=== PATIENT | female | born 1985 | race Caucasian/White ===

== ENCOUNTER 2016-10-14 19:59 | Emergency (ER) | payer BC ==
[2016-10-14 20:09] VITALS: BP 130/89; PULSE 88; RESP 18; TEMP 97.7
--- NOTE | 2016-10-14 20:25 | ED ---
General Adult HPI - General Chief complaint: ENT Stated complaint: fever/cough Time Seen by Provider: 10/14/16 20:02 Source: patient, RN notes reviewed Mode of arrival: ambulatory Limitations: no limitations - History of Present Illness Initial comments: This is a 31-year-old female who presents to the for 3 days of fever and cough. Patient states she also has had a headache and a sore throat. Patient states the cough is dry. Patient denies any shortness of breath. Patient has a child sick with influenza B. Patient denies any nausea/vomiting/diarrhea. Patient states her ears feel plugged. Patient states she feels like she has had a fever but this has been subjective. Patient has been taking DayQuil for her symptoms. Patient denies any recent chest pain, abdominal pain, back pain, numbness, tingling, hematuria, or visual changes, or any other complaints. - Related Data Home Medications Medication Instructions Recorded Confirmed Hair, Skin, & Nails 1 tab PO DAILY 07/19/16 07/19/16 Multivitamins, Thera [Multivitamin] 1 tab PO DAILY 07/19/16 07/19/16 Previous Rx's Medication Instructions Recorded Acetaminophen with Codeine 1 tab PO Q4H PRN #15 tab 07/19/16 [Tylenol w/codeine #3] Fluticasone Nasal [place] [Flonase 1 - 2 spray EA NOSTRIL DAILY #1 10/14/16 Nasal [place]] bottle Allergies Allergy/AdvReac Type Severity Reaction Status Date / Time No Known Allergies Allergy Verified 07/19/16 12:18 Review of Systems ROS Statement: Those systems with pertinent positive or pertinent negative responses have been documented in the HPI. ROS Other: All systems not noted in ROS Statement are negative. Past Medical History Past Medical History: No Reported History History of Any Multi-Drug Resistant Organisms: None Reported Past Surgical History: No Surgical Hx Reported Past Psychological History: No Psychological Hx Reported Smoking Status: Never smoker Past Alcohol Use History: Occasional Past Drug Use History: None Reported General Exam - General Exam Comments Initial Comments: General: The patient is awake and alert, in no distress, and does not appear acutely ill. Eye: Pupils are equal, round and reactive to light, extra-ocular movements are intact. No nystagmus. There is normal conjunctiva bilaterally. No signs of icterus. Ears: TMs pink and pearly with intact cone of light bilaterally, fluid present behind the ears bilaterally. Normal external ear canals Nose: Nasal turbinates with mild erythema. Mild discomfort of frontal and maxillary sinuses. Mouth and throat: There are moist mucous membranes and no oral lesions. Neck: The neck is supple, there is no tenderness or JVD. Cardiovascular: There is a regular rate and rhythm. No murmur, rub or gallop is appreciated. Respiratory: Lungs are clear to auscultation, respirations are non-labored, breath sounds are equal. No wheezes, stridor, rales, or rhonchi. Musculoskeletal: Normal ROM, no tenderness. Strength 5/5. Sensation intact. Radial pulses equal bilaterally 2+. Neurological: A&O x 3. CN II-XII intact, There are no obvious motor or sensory deficits. Coordination appears grossly intact. Speech is normal. Skin: Skin is warm and dry and no rashes or lesions are noted. Psychiatric: Cooperative, appropriate mood & affect, normal judgment. Limitations: no limitations Course Vital Signs 10/14/16 20:07 Temperature 97.7 F Pulse Rate 88 Respiratory 18 Rate Blood Pressure 130/89 O2 Sat by Pulse 99 Oximetry Medical Decision Making - Medical Decision Making This is a 31-year-old female presents with flu-like symptoms 3 days. On physical exam patient is afebrile in the EC. Lungs are clear to auscultation bilaterally. The patient was in the EC today with her daughter who was diagnosed with influenza B. I discussed that the mother most likely has influenza as well. Discussed that patient is out of the window for influenza treatment with Tamiflu. I discussed symptomatic treatment. Patient will be given a prescription for Flonase. I offered the patient chest x-ray in the EC today but patient refused. I discussed continuation of Tylenol and Motrin for fever. I discussed return parameters. Discussed that patient should follow up with PCP in one to 2 days or return to the EC for any worsening symptoms or for any further concerns. Patient was receptive to this plan and patient will be discharged home. Disposition Clinical Impression: Influenza Disposition: HOME SELF-CARE Condition: Good Instructions: Influenza (ED), Influenza Vaccine (ED) Additional Instructions: Please continue [id number] decongestants and Tylenol/Motrin. Please be sure to drink plenty of fluids. Please use Flonase as prescribed. Please follow-up with primary care provider in the next 1-2 days or return to the EC for any worsening symptoms or for any further concerns. Prescriptions: Fluticasone Nasal [place] [Flonase Nasal [place]] 1 - 2 spray EA NOSTRIL DAILY #1 bottle Referrals: Arron Chen MD [Primary Care Provider] - 1-2 days Time of Disposition: 20:29
== END 2016-10-14 20:35 | disposition home or self-care (01) ==
LOC: EC 19:59
DX: J10.1 Influenza due to other identified influenza virus with other respiratory manifestations (principal)
CPT/HCPCS: 99283

== ENCOUNTER 2018-12-16 15:13 | Inpatient (IN) | payer BC ==
[2018-12-16 16:13] LABS: Appearance,Urine Clear (Clear); Bilirubin,Urine Negative (Negative); Blood,Urine Moderate (Negative); Color,Urine Yellow; Glucose,Urine (UA) Negative (Negative); Ketones,Urine Negative (Negative); Leukocyte Esterase,Urine Trace (Negative); Mucus,Urine Rare /hpf; Nitrite,Urine Negative (Negative); Protein,Urine Trace (Negative); Specific Gravity,Urine 1.018 (1.001-1.035); Squamous Epithelial Cell,Urine 3 /hpf (0-4); Urobilinogen,Urine <2.0 mg/dL (<2.0); WBC,Urine 3 /hpf (0-5)
[2018-12-16 16:15] LABS: Basophils % (A) 0 %; Eosinophils # (A) 0.1 k/uL (0-0.7); Eosinophils % (A) 1 %; HGB 11.5 gm/dL (11.4-16.0); Lymphocytes # (A) 1.4 k/uL (1.0-4.8); Lymphocytes % (A) 19 %; MCHC 32.8 g/dL (31.0-37.0); MCV 88.5 fL (80.0-100.0); Mean Platelet Volume 7.8; Monocytes # (A) 0.6 k/uL (0-1.0); Monocytes % (A) 7 %; Neutrophils # (A) 5.4 k/uL (1.3-7.7); Neutrophils % (A) 72 %; Platelet Count 175 k/uL (150-450); RBC 3.95 m/uL (3.80-5.40); RDW 13.7 % (11.5-15.5); WBC 7.5 k/uL (3.8-10.6)
[2018-12-16 16:26] LABS: ALT 12 U/L (9-52); AST 20 U/L (14-36); Blood Urea Nitrogen 9 mg/dL (7-17); LDH 328 U/L (313-618); Uric Acid 5.6 mg/dL (3.7-7.4)
[2018-12-16 17:14] VITALS: BMI 30.7
[2018-12-16] MEDS ORDERED: CARBOPROST TROMETHAMINE 250 MCG/ML 1 ML AMP IM PRN (18:04)
[2018-12-16] MEDS ORDERED: OXYTOCIN 10 UNIT/ML 1 ML VIAL IM PRN (18:04)
[2018-12-16] MEDS ORDERED: TERBUTALINE 1 MG/ML VIAL SQ PRN (18:04)
[2018-12-16] MEDS ORDERED: METHYLERGONOVINE 0.2 MG/ML 1 ML AMP IM PRN (18:04)
[2018-12-16] MEDS ORDERED: LIDOCAINE 0.5% (PF) 5 MG/ML (50 ML SDV) SQ PRN (18:04)
[2018-12-16] MEDS ORDERED: OXYTOCIN 30 UNITS/500 ML NS 30 UNIT in SALINE 1 500ML.BAG IV SCH (18:15)
--- NOTE | 2018-12-16 20:27 | P.HPOB ---
History of Present Illness H&P Date: 12/16/18 Chief Complaint: Contractions This is a 33-year-old female 3 para 2 with an estimated date of confinement of 12/14/2018, estimated gestational age of 40-2/7 weeks, who presents to labor and delivery with complaints of contractions. She states they began earlier this morning and have been more intense and fairly regular throughout the day. Upon arrival to triage, she was noted to have some elevated blood pressures. She denies any other history of blurry vision, headaches, or other symptoms. Preeclampsia labs were drawn and all labs were normal. She is admitted for observation due to the gestational hypertension and will be induced in the morning as scheduled unless changes In through the night. labs: GC/chlamydia-negative Hepatitis B surface antigen-negative RPR-nonreactive Rubella-immune Blood type-O+ Antibody screen-negative MANDA globin-13.1 Random glucose-75 Obstetrical ultrasound-normal anatomy. She did have a partial previa at 19 week s that did resolve. 1 hour Glucola-100 Group B streptococcus-negative, but history of positive in the past Obstetrical history: . History of 2 vaginal deliveries at term. Gynecologic history: No history of sexual transmitted diseases Social history: She is . She works part-time as a hairdresser. Review of Systems Constitutional: Denies chills, Denies fever Eyes: denies blurred vision, denies pain Ears, nose, mouth and throat: Denies headache, Denies sore throat Cardiovascular: Denies chest pain, Denies shortness of breath Respiratory: Denies cough Gastrointestinal: Reports abdominal pain (Contractions) Genitourinary: Reports pelvic pain, Reports Musculoskeletal: Reports loss of height Integumentary: Denies pruritus, Denies rash Neurological: Denies numbness, Denies weakness Psychiatric: Reports anxiety, Reports depression Past Medical History Past Medical History: No Reported History History of Any Multi-Drug Resistant Organisms: None Reported Past Surgical History: Breast Surgery Additional Past Surgical History / Comment(s): 2009 Past Anesthesia/Blood Transfusion Reactions: No Reported Reaction Past Psychological History: No Psychological Hx Reported Smoking Status: Never smoker Past Alcohol Use History: Occasional Past Drug Use History: None Reported - Past Family History Mother Family Medical History: Hypertension Father Family Medical History: Diabetes Mellitus Medications and Allergies Home Medications Medication Instructions Recorded Confirmed Type Acetaminophen with Codeine 1 tab PO Q4H PRN #15 tab 07/19/16 Rx [Tylenol w/codeine #3] Multivitamins, Thera [Multivitamin] 1 tab PO DAILY 07/19/16 07/19/16 History Calcium Carbonate [Calcium] 600 mg 12/16/18 History Allergies Allergy/AdvReac Type Severity Reaction Status Date / Time No Known Allergies Allergy Verified 07/19/16 12:18 Exam Osteopathic Statement: *. No significant issues noted on an osteopathic structural exam other than those noted in the History and Physical/Consult. Vital Signs Temp Pulse Resp BP Pulse Ox 12/16/18 17:58 97.5 F L 71 15 150/90 100 12/16/18 17:08 97.5 F L 71 15 150/90 100 Intake and Output 12/16/18 12/16/18 12/16/18 06:59 14:59 22:59 Other: Weight 99.79 kg HEENT: Within normal limits Heart: Regular rate and rhythm Lungs: Clear to auscultation bilaterally Abdomen: Cervix: 4 cm/60%/-2 station heart tones: Category 1, reactive Contractions: Irregular Extremities: Negative Homans Results Result Diagrams: 12/16/18 15:44 12/16/18 15:44 Abnormal Lab Results - Last 24 Hours (Table) 12/16/18 12/16/18 Range/Units 15:52 15:52 Urine Protein Trace H (Negative) Urine Blood Moderate H (Negative) Ur Leukocyte Esterase Trace H (Negative) Urine Mucus Rare H (None) /hpf U Random Total Protein 15 H (<12) mg/dL Assessment and Plan (1) 40 weeks gestation of Current Visit: Yes Status: Acute Code(s): Z3A.40 - 40 WEEKS GESTATION OF SNOMED Code(s): 03102114 (2) Gestational hypertension Current Visit: Yes Status: Acute Code(s): O13.9 - GESTATIONAL HTN W/O SIGNIFICANT PROTEINURIA, UNSP TRIMESTER SNOMED Code(s): 536840563 Plan: Admission for observation tonight. As long as no severe blood pressure elevations, we will start oxytocin induction of labor in the morning. She will also be started on IV antibiotics for group B streptococcus prophylaxis. Expectant management.
[2018-12-17] MEDS ORDERED: IBUPROFEN 600 MG TAB PO ONE (04:40)
[2018-12-17] MEDS ORDERED: BENZOCAINE/MENTHOL SPRAY 1 GM/SPRAY AEROSOL TOPICAL PRN (05:22)
[2018-12-17] MEDS ORDERED: diphenhydrAMINE 50 MG CAP PO PRN (05:22)
[2018-12-17] MEDS ORDERED: ZOLPIDEM 5 MG TAB PO PRN (05:22)
[2018-12-17] MEDS ORDERED: diphenhydrAMINE 25 MG CAP PO PRN (05:22)
[2018-12-17] MEDS ORDERED: LANOLIN CREAM 5 GM TUBE TOPICAL PRN (05:22)
[2018-12-17] MEDS ORDERED: SIMETHICONE 80 MG CHEWABLE PO PRN (05:22)
[2018-12-17] MEDS ORDERED: diphenhydrAMINE 50 MG/ML 1 ML VIAL IVP PRN ×2 (05:22)
[2018-12-17] MEDS ORDERED: ACETAMINOPHEN TAB 325 MG TAB PO PRN (05:22)
[2018-12-17] MEDS ORDERED: HYDROCORTISONE 2.5% RECTAL CREAM 30 GM TUBE RECTAL PRN (05:22)
[2018-12-17] MEDS ORDERED: WITCH HAZEL 1 EACH MED..PAD TOPICAL PRN (05:22)
[2018-12-17] MEDS ORDERED: OXYTOCIN 20 UNITS/1000 ML NS 1,000 ML IV SCH (05:30)
[2018-12-17 07:49] LABS: Basophils % (A) 0 %; Eosinophils # (A) 0.1 k/uL (0-0.7); Eosinophils % (A) 2 %; HCT 38.1 % (34.0-46.0); HGB 12.4 gm/dL (11.4-16.0); Lymphocytes # (A) 1.8 k/uL (1.0-4.8); Lymphocytes % (A) 22 %; MCH 28.6 pg (25.0-35.0); MCHC 32.5 g/dL (31.0-37.0); MCV 87.9 fL (80.0-100.0); Mean Platelet Volume 8.3; Monocytes # (A) 0.5 k/uL (0-1.0); Monocytes % (A) 6 %; Neutrophils # (A) 5.6 k/uL (1.3-7.7); Neutrophils % (A) 69 %; Platelet Count 188 k/uL (150-450); RBC 4.33 m/uL (3.80-5.40); RDW 13.6 % (11.5-15.5); WBC 8.2 k/uL (3.8-10.6)
--- NOTE | 2018-12-17 08:15 | P.PNOBGVD ---
Subjective - Subjective Principal diagnosis: Status post vaginal delivery day #1 Interval history: Patient is doing okay. Lochia is decreasing. She is breast-feeding. Vital signs are stable. Blood pressures have come down slightly. She is frustrated by the construction right above her head in her room. Will try to move to another room. Patient reports: Reports appetite normal, Reports voiding normally, Reports pain well controlled, Reports ambulating normally [place]: doing well, nursing well Objective - Latest Vital Signs Latest vital signs: Vital Signs Temp Pulse Resp BP Pulse Ox 12/17/18 06:15 97.9 F 74 14 137/72 98 12/17/18 05:45 68 14 137/85 12/17/18 05:15 77 14 145/86 12/17/18 05:00 75 14 144/83 12/17/18 04:45 97.4 F L 68 14 139/89 12/17/18 04:30 98.3 F 74 14 152/75 12/17/18 04:15 65 14 148/70 12/16/18 17:58 97.5 F L 71 15 150/90 100 12/16/18 17:08 97.5 F L 71 15 150/90 100 Intake and Output 12/16/18 12/17/18 12/17/18 22:59 06:59 14:59 Other: # Voids 1 0 Weight 99.79 kg - Exam Extremities: Present: normal. Absent: tenderness Abdomen: Present: normal appearance, soft. Absent: distention, tenderness Uterus: Present: normal, firm. Absent: tenderness - Labs Labs: Abnormal Lab Results - Last 24 Hours (Table) 12/16/18 12/16/18 Range/Units 15:52 15:52 Urine Protein Trace H (Negative) Urine Blood Moderate H (Negative) Ur Leukocyte Esterase Trace H (Negative) Urine Mucus Rare H (None) /hpf U Random Total Protein 15 H (<12) mg/dL Assessment and Plan Assessment: Status post vaginal delivery day #1 (1) 40 weeks gestation of Current Visit: Yes Status: Acute Code(s): Z3A.40 - 40 WEEKS GESTATION OF SNOMED Code(s): 98165951 (2) Gestational hypertension Current Visit: Yes Status: Acute Code(s): O13.9 - GESTATIONAL HTN W/O SIGNIFICANT PROTEINURIA, UNSP TRIMESTER SNOMED Code(s): 859290439 Plan: Continue with care. Anticipate discharge home tomorrow.
--- NOTE | 2018-12-17 09:28 | DN ---
DELIVERY SUMMARY The patient progressed to complete and pushing with spontaneous vaginal delivery of a viable male over intact perineum. Following delivery of the head, a nuchal cord x1 was noted, however, was too tight to reduce. Therefore, baby was delivered through the nuchal cord without difficulty and once this was accomplished, anterior and posterior shoulders were easily delivered followed by the remainder of the baby and mouth and nares were then bulb suctioned and baby was placed on mother's abdomen where the umbilical cord was clamped, cut in the usual fashion. Nursery personnel was present to assume care. The umbilical cord was allowed to pulsate for approximately 45 seconds prior to clamping and cutting. Once accomplished, placenta was delivered intact and Pitocin was added to the IV. scores were 8 and 9 at 1 and 5 minutes respectively and the weight was 7 pounds 14 ounces. Both mother and baby were stable following delivery. MMODL / JORGEN: [id number] /
[2018-12-17] MEDS: IBUPROFEN 600 MG TAB PO PRN ×2 (12:15→19:52)
[2018-12-17] MEDS: SENNOSIDES-DOCUSATE SODIUM 1 EACH TAB PO SCH (12:15)
[2018-12-18] MEDS: SENNOSIDES-DOCUSATE SODIUM 1 EACH TAB PO SCH ×2 (02:23→09:00)
[2018-12-18] MEDS: LACTATED RINGERS 1,000 ML IV SCH ×3 (05:37→05:39)
[2018-12-18 07:23] LABS: Basophils % (A) 0 %; Eosinophils # (A) 0.1 k/uL (0-0.7); Eosinophils % (A) 1 %; HCT 31.3 % (34.0-46.0); HGB 10.2 gm/dL (11.4-16.0); Lymphocytes # (A) 1.6 k/uL (1.0-4.8); Lymphocytes % (A) 15 %; MCH 28.5 pg (25.0-35.0); MCHC 32.6 g/dL (31.0-37.0); MCV 87.5 fL (80.0-100.0); Monocytes # (A) 0.6 k/uL (0-1.0); Monocytes % (A) 6 %; Neutrophils # (A) 8.5 k/uL (1.3-7.7); Neutrophils % (A) 78 %; Platelet Count 170 k/uL (150-450); RBC 3.58 m/uL (3.80-5.40); RDW 13.6 % (11.5-15.5)
--- NOTE | 2018-12-18 08:08 | P.DS ---
Providers Date of admission: 12/16/18 16:38 Expected date of discharge: 12/18/18 Attending physician: Kimberly Stringer Primary care physician: Stated None - Discharge Diagnosis(es) (1) 40 weeks gestation of Current Visit: Yes Status: Acute (2) Gestational hypertension Current Visit: Yes Status: Acute Hospital Course: This is a 33-year-old female 3 para 2 at 40-2/7 weeks who presented to labor and delivery with complaints of contractions. She was found not to be in labor however her blood pressures were elevated and therefore she was admitted for observation overnight with planned induction for the a.m. She did however go into labor spontaneously early in the morning and delivered vaginally a viable male on 12/17/2018 with scores of 8 at 1 minute and 9 at 5 minutes and weight of 7 lbs. 14 oz. Her course has been uncomplicated. Her blood pressures have normalized. Lochia is decreasing. Pain is well-controlled with ibuprofen. She is breast-feeding. Vital signs are stable. Abdomen is soft with fundus firm and nontender. Extremities show negative Homans. Impression is status post vaginal delivery day #1. Plan is to discharge home today. Routine instructions are given. She is advised to follow up in the office in 6 weeks for a check. She will be given a prescription for ibuprofen and a breast pump. She is advised to call the office if she has any further questions or concerns prior to her appointment time. Procedures: Spontaneous vaginal delivery of a viable male infant on 12/17/2018 Patient Condition at Discharge: Stable Plan - Discharge Summary Discharge Rx Participant: No New Discharge Prescriptions: New Ibuprofen [Motrin] 600 mg PO Q6HR PRN #60 tab PRN Reason: Mild Pain Or Fever >= 100.5 Continue Multivitamins, Thera [Multivitamin (formulary)] 1 tab PO DAILY Discontinued Acetaminophen with Codeine [Tylenol w/codeine #3] 1 tab PO Q4H PRN #15 tab PRN Reason: Pain No Action Calcium Carbonate [Calcium] 600 mg Discharge Medication List Multivitamins, Thera [Multivitamin (formulary)] 1 tab PO DAILY 07/19/16 [History] Calcium Carbonate [Calcium] 600 mg 12/16/18 [History] Ibuprofen [Motrin] 600 mg PO Q6HR PRN #60 tab 12/18/18 [Rx] Follow up Appointment(s)/Referral(s): Kimberly Stringer DO [Doctor of Osteopathic Medicine] - 6 Weeks Activity/Diet/Wound Care/Special Instructions: Instructions 1. Do not begin any exercise program for 3 weeks. 2. Do not resume sexual relations for 3 weeks or longer if uncomfortable. 3. You may take tub baths or showers at any time. 4. You may use tampons if desired after 3 weeks. 5. Keep the area of episiotomy (stitches) clean and dry. 6. If you are not nursing, wear a good fitting, supportive bra during the day and limit fluid intake for at least 1 week to prevent breast engorgement. 7. Call the office, [phone], within the next week to make appointment for your 6 week checkup if it has not already been made. 8. Report any of the following occurrences to the doctor promptly: a. Heavy, excessive bleeding b. Chills, fever c. Burning or frequency of urination d. Pain or redness and breasts if nursing e. Increasing pain or swelling in episiotomy (stitches). In addition to the above instructions, the following additional should be followed: 1. No heavy lifting or straining (exercising) until after 6 week checkup. 2. Keep abdominal incision clean and dry: You may wear a dressing if more comfortable. 3. Make office appointment for 10 days after going home or as instructed by her doctor. Discharge Disposition: HOME SELF-CARE
[2018-12-18] MEDS: IBUPROFEN 600 MG TAB PO PRN (08:59)
[2018-12-18 09:19] VITALS: BP 145/92; PULSE 72; RESP 18; TEMP 97.9
== END 2018-12-18 11:52 | disposition home or self-care (01) | DRG 807 ==
LOC: FBPOP 15:13 → 4FBP 16:38
PROVIDERS: ADMIT Obstetrics & Gynecology; ATTEND Obstetrics & Gynecology
PROC: 10E0XZZ Delivery of Products of Conception, External Approach (ICD-10-PCS; principal; 2018-12-17)
DX: O13.4 Gestational [pregnancy-induced] hypertension without significant proteinuria, complicating childbirth (principal); Z37.0 Single live birth; O69.81X0 Labor and delivery complicated by cord around neck, without compression, not applicable or unspecified; Z3A.40 40 weeks gestation of pregnancy; Z82.49 Family history of ischemic heart disease and other diseases of the circulatory system; Z83.3 Family history of diabetes mellitus
CPT/HCPCS: 59025; 81001; 82565; 82570; 83615; 84156; 84450; 84460; 84520; 84550; 85025; 86850; 86900; 86901; 99215

== ENCOUNTER 2020-08-17 21:22 | Emergency (ER) | payer BC ==
[2020-08-17 21:28] VITALS: TEMP 98.6
[2020-08-17] MEDS ORDERED: SODIUM CHLORIDE 0.9% 1,000 ML IV STA (21:39)
[2020-08-17 21:57] LABS: Basophils % (A) 1 %; Eosinophils # (A) 0.1 k/uL (0-0.7); Eosinophils % (A) 2 %; HCT 37.4 % (34.0-46.0); HGB 12.9 gm/dL (11.4-16.0); Lymphocytes # (A) 2.5 k/uL (1.0-4.8); Lymphocytes % (A) 47 %; MCH 29.7 pg (25.0-35.0); MCHC 34.5 g/dL (31.0-37.0); MCV 86.2 fL (80.0-100.0); Mean Platelet Volume 7.5; Monocytes # (A) 0.4 k/uL (0-1.0); Monocytes % (A) 7 %; Neutrophils # (A) 2.2 k/uL (1.3-7.7); Neutrophils % (A) 42 %; Platelet Count 177 k/uL (150-450); RBC 4.34 m/uL (3.80-5.40); RDW 12.4 % (11.5-15.5); WBC 5.2 k/uL (3.8-10.6)
[2020-08-17 22:13] LABS: ALT 9 U/L (4-34); AST 19 U/L (14-36); African American GFR (CKD) >90 (>60 ml/min/1.73 sqM); Albumin 4.3 g/dL (3.5-5.0); Alkaline Phosphatase 71 U/L (38-126); Amylase 96 U/L (30-110); Anion Gap 7 mmol/L; Blood Urea Nitrogen 21 mg/dL (7-17); Calcium 9.3 mg/dL (8.4-10.2); Carbon Dioxide 25 mmol/L (22-30); Chloride 106 mmol/L (98-107); Glucose 89 mg/dL (74-99); Lipase 107 U/L (23-300); Non-African American GFR(CKD) 84 (>60 ml/min/1.73 sqM); Potassium 4.3 mmol/L (3.5-5.1); Sodium 138 mmol/L (137-145); Total Bilirubin 0.4 mg/dL (0.2-1.3); Total Protein 7.7 g/dL (6.3-8.2)
[2020-08-17 22:22] LABS: Appearance,Urine Clear (Clear); Bilirubin,Urine Negative (Negative); Blood,Urine Negative (Negative); Color,Urine Light Yellow; Glucose,Urine (UA) Negative (Negative); Hyaline Casts,Urine 1 /lpf (0-2); Ketones,Urine Negative (Negative); Leukocyte Esterase,Urine Trace (Negative); Nitrite,Urine Negative (Negative); PH, Urine 6.5 (5.0-8.0); Protein,Urine Negative (Negative); RBC,Urine <1 /hpf (0-5); Specific Gravity,Urine 1.016 (1.001-1.035); Squamous Epithelial Cell,Urine 2 /hpf (0-4); Urobilinogen,Urine <2.0 mg/dL (<2.0); WBC,Urine 1 /hpf (0-5)
--- NOTE | 2020-08-17 22:29 | ED ---
General Adult HPI - General Chief complaint: Abdominal Pain Stated complaint: Abd Pain Time Seen by Provider: 08/17/20 21:38 Source: patient, RN notes reviewed Mode of arrival: ambulatory Limitations: no limitations - History of Present Illness Initial comments: 35-year-old female presents to the emergency room for a chief complaint of right lower quadrant pain. Patient reports she has had mild pain for the past few days. States it comes and goes. States she is not having much pain. She did have diarrhea yesterday but has otherwise not had any GI symptoms. No nausea vomiting. She denies fevers or chills.Patient has no other complaints at this time including shortness of breath, chest pain nausea or vomiting, headache, or visual changes. - Related Data Home Medications Medication Instructions Recorded Confirmed Ibuprofen [Motrin Ib] 600 mg PO Q8H PRN 08/17/20 08/17/20 Allergies Allergy/AdvReac Type Severity Reaction Status Date / Time No Known Allergies Allergy Verified 08/17/20 22:51 Review of Systems ROS Statement: Those systems with pertinent positive or pertinent negative responses have been documented in the HPI. ROS Other: All systems not noted in ROS Statement are negative. Past Medical History Past Medical History: No Reported History History of Any Multi-Drug Resistant Organisms: None Reported Past Surgical History: Breast Surgery Additional Past Surgical History / Comment(s): 2008, Past Anesthesia/Blood Transfusion Reactions: No Reported Reaction Past Psychological History: No Psychological Hx Reported Smoking Status: Current some day smoker Past Alcohol Use History: Occasional Past Drug Use History: None Reported - Past Family History Mother Family Medical History: Hypertension Father Family Medical History: Diabetes Mellitus General Exam Limitations: no limitations General appearance: alert Head exam: Present: atraumatic Eye exam: Present: normal appearance, PERRL, EOMI. Absent: scleral icterus ENT exam: Present: normal exam, mucous membranes moist Neck exam: Present: normal inspection, full ROM. Absent: tenderness Respiratory exam: Present: normal lung sounds bilaterally. Absent: respiratory distress Cardiovascular Exam: Present: regular rate, normal rhythm, normal heart sounds GI/Abdominal exam: Present: soft, normal bowel sounds. Absent: distended, tenderness (No abdominal tenderness noted), guarding, rebound, rigid Expanded GI/Abdominal exam: Absent: psoas sign, obturator sign, heel tap sign, Perrin's sign, Rovsing's sign, tenderness at [place]Bur[place]'s Point Neurological exam: Present: alert Course Vital Signs 08/17/20 08/17/20 21:24 23:16 Temperature 98.6 F Pulse Rate 66 68 Respiratory 16 18 Rate Blood Pressure 146/94 134/91 O2 Sat by Pulse 99 99 Oximetry Medical Decision Making - Medical Decision Making Vital are stable. PE exam reveals a nontender right lower quadrant. No tenderness elsewhere in the abdomen. Patient is well-appearing and in no distress. CBC CMP unremarkable. White blood cell count is 5.2. There is no left shift. Urinalysis is unremarkable. HCG is negative. Ultrasound was performed and there are multiple left-sided ovarian cyst without solid adnexal mass or ovarian torsion. I reevaluated patient, serial abdominal exams reveal no tenderness at this time. Patient states her pain is "good". At this time I do not suspect appendicitis given no right-sided tenderness, normal white blood cell count, no fevers.. However if patient develops fevers or worsening abd ominal pain I do recommend she return to the emergency room. Patient is agreeable to this. She will otherwise follow up with her primary care provider.I discussed this case with attending Dr. Campos who agrees with this assessment and treatment plan. - Lab Data Result diagrams: 08/17/20 21:51 08/17/20 21:51 Lab Results 08/17/20 08/17/20 08/17/20 Range/Units 21:51 21:51 22:08 WBC 5.2 (3.8-10.6) k/uL RBC 4.34 (3.80-5.40) m/uL Hgb 12.9 (11.4-16.0) gm/dL Hct 37.4 (34.0-46.0) % MCV 86.2 (80.0-100.0) fL MCH 29.7 (25.0-35.0) pg MCHC 34.5 (31.0-37.0) g/dL RDW 12.4 (11.5-15.5) % Plt Count 177 (150-450) k/uL MPV 7.5 Neutrophils % 42 % Lymphocytes % 47 % Monocytes % 7 % Eosinophils % 2 % Basophils % 1 % Neutrophils # 2.2 (1.3-7.7) k/uL Lymphocytes # 2.5 (1.0-4.8) k/uL Monocytes # 0.4 (0-1.0) k/uL Eosinophils # 0.1 (0-0.7) k/uL Basophils # 0.0 (0-0.2) k/uL Sodium 138 (137-145) mmol/L Potassium 4.3 (3.5-5.1) mmol/L Chloride 106 (98-107) mmol/L Carbon Dioxide 25 (22-30) mmol/L Anion Gap 7 mmol/L BUN 21 H (7-17) mg/dL Creatinine 0.89 (0.52-1.04) mg/dL Est GFR (CKD-EPI)AfAm >90 (>60 ml/min/1.73 sqM) Est GFR (CKD-EPI)NonAf 84 (>60 ml/min/1.73 sqM) Glucose 89 (74-99) mg/dL Calcium 9.3 (8.4-10.2) mg/dL Total Bilirubin 0.4 (0.2-1.3) mg/dL AST 19 (14-36) U/L ALT 9 (4-34) U/L Alkaline Phosphatase 71 (38-126) U/L Total Protein 7.7 (6.3-8.2) g/dL Albumin 4.3 (3.5-5.0) g/dL Amylase 96 (30-110) U/L Lipase 107 (23-300) U/L Urine Color Light Yellow Urine Appearance Clear (Clear) Urine pH 6.5 (5.0-8.0) Ur Specific [place] 1.016 (1.001-1.035) Urine Protein Negative (Negative) Urine Glucose (UA) Negative (Negative) Urine Ketones Negative (Negative) Urine Blood Negative (Negative) Urine Nitrite Negative (Negative) Urine Bilirubin Negative (Negative) Urine Urobilinogen <2.0 (<2.0) mg/dL Ur Leukocyte Esterase Trace H (Negative) Urine RBC <1 (0-5) /hpf Urine WBC 1 (0-5) /hpf Ur Squamous Epith Cells 2 (0-4) /hpf Hyaline Casts 1 (0-2) /lpf Urine HCG, Qual (Not Detectd) 08/17/20 Range/Units 22:08 WBC (3.8-10.6) k/uL RBC (3.80-5.40) m/uL Hgb (11.4-16.0) gm/dL Hct (34.0-46.0) % MCV (80.0-100.0) fL MCH (25.0-35.0) pg MCHC (31.0-37.0) g/dL RDW (11.5-15.5) % Plt Count (150-450) k/uL MPV Neutrophils % % Lymphocytes % % Monocytes % % Eosinophils % % Basophils % % Neutrophils # (1.3-7.7) k/uL Lymphocytes # (1.0-4.8) k/uL Monocytes # (0-1.0) k/uL Eosinophils # (0-0.7) k/uL Basophils # (0-0.2) k/uL Sodium (137-145) mmol/L Potassium (3.5-5.1) mmol/L Chloride (98-107) mmol/L Carbon Dioxide (22-30) mmol/L Anion Gap mmol/L BUN (7-17) mg/dL Creatinine (0.52-1.04) mg/dL Est GFR (CKD-EPI)AfAm (>60 ml/min/1.73 sqM) Est GFR (CKD-EPI)NonAf (>60 ml/min/1.73 sqM) Glucose (74-99) mg/dL Calcium (8.4-10.2) mg/dL Total Bilirubin (0.2-1.3) mg/dL AST (14-36) U/L ALT (4-34) U/L Alkaline Phosphatase (38-126) U/L Total Protein (6.3-8.2) g/dL Albumin (3.5-5.0) g/dL Amylase (30-110) U/L Lipase (23-300) U/L Urine Color Urine Appearance (Clear) Urine pH (5.0-8.0) Ur Specific [place] (1.001-1.035) Urine Protein (Negative) Urine Glucose (UA) (Negative) Urine Ketones (Negative) Urine Blood (Negative) Urine Nitrite (Negative) Urine Bilirubin (Negative) Urine Urobilinogen (<2.0) mg/dL Ur Leukocyte Esterase (Negative) Urine RBC (0-5) /hpf Urine WBC (0-5) /hpf Ur Squamous Epith Cells (0-4) /hpf Hyaline Casts (0-2) /lpf Urine HCG, Qual Not Detected (Not Detectd) Disposition Clinical Impression: Abdominal pain, Diarrhea, Ovarian cyst Disposition: HOME SELF-CARE Condition: Good Instructions (If sedation given, give patient instructions): Abdominal Pain (ED) Additional Instructions: Please take Motrin and Tylenol for pain. If you develop any worsening symptoms or develop a fever return to the emergency room. Otherwise follow-up with your primary care doctor in the next 1-2 days. Is patient prescribed a controlled substance at d/c from ED?: No Referrals: Yu Hamlin MD [Primary Care Provider] - 1-2 days Time of Disposition: 23:44
[2020-08-17] MEDS ORDERED: KETOROLAC 15 MG/ML 1 ML VIAL IVP STA (22:47)
[2020-08-17 23:17] VITALS: BP 134/91; PULSE 68; RESP 18
--- NOTE | 2020-08-17 23:34 | US ---
EXAMINATION TYPE: US transvaginal DATE OF EXAM: 08/17/2020 COMPARISON: US 07/19/2016 CLINICAL HISTORY: RLQ pain. RLQ pain x 3 days. . TECHNIQUE: Transvaginal (TV). Date of LMP: 08/07/2020 EXAM MEASUREMENTS: Uterus: 8.3 x 5.1 x 4.1 cm Endometrial Stripe: 0.71 cm Right Ovary: 3.5 x 2.1 x 1.9 cm Left Ovary: 5.6 x 2.8 x 3.0 cm 1. Uterus: Anteverted No abnormalities seen. 2. Endometrium: Measures 0.71 cm. 3. Right Ovary: Hypoechoic-anechoic area seen measuring 1.2 x 1.1 x 1.1 cm. 4. Left Ovary: Appears enlarged. Anechoic areas seen. Largest measures 2.9 x 2.7 x 3.3 cm. Spectral, color and waveform doppler imaging shows arterial and venous flow within the ovaries. 5. Bilateral Adnexa: Appear wnl 6. Posterior cul-de-sac: Appears wnl IMPRESSION: Multiple left-sided ovarian cysts. No solid adnexal mass. No evidence of ovarian torsion. Normal uter us and endometrium. No adverse change compared to old exam.
[2020-08-19 11:46] LABS: Chlamydia trachomatis rRNA Not detected (Not detected); Neisseria gonorrhoeae rRNA Not detected (Not detected)
== END 2020-08-17 23:55 | disposition home or self-care (01) ==
LOC: EC 21:22
DX: N83.202 Unspecified ovarian cyst, left side (principal); R19.7 Diarrhea, unspecified; F17.200 Nicotine dependence, unspecified, uncomplicated
CPT/HCPCS: 36415; 80053; 87591; 87491; 82150; 83690; 85025; 81001; 81025; 93975; 76830; 99284; 96374; 96361; J1885

== ENCOUNTER 2024-02-04 14:53 | Inpatient (IN) | payer BC ==
[2024-02-04 15:50] LABS: Appearance,Urine Cloudy (Clear); Bacteria,Urine Rare /hpf; Bilirubin,Urine Negative (Negative); Blood,Urine Large (Negative); Color,Urine Light Yellow; Glucose,Urine (UA) Negative (Negative); Ketones,Urine Negative (Negative); Leukocyte Esterase,Urine Large (Negative); Mucus,Urine Rare /hpf; Nitrite,Urine Negative (Negative); PH, Urine 6.5 (5.0-8.0); Protein,Urine Trace (Negative); RBC,Urine 4 /hpf (0-5); Specific Gravity,Urine 1.017 (1.001-1.035); Squamous Epithelial Cell,Urine 11 /hpf (0-4); Urobilinogen,Urine <2.0 mg/dL (<2.0); WBC,Urine 4 /hpf (0-5)
[2024-02-04 15:57] LABS: Basophils % (A) 0 %; Eosinophils % (A) 0 %; HCT 34.1 % (34.0-46.0); HGB 11.4 gm/dL (11.4-16.0); Lymphocytes # (A) 1.2 k/uL (1.0-4.8); Lymphocytes % (A) 18 %; MCH 29.7 pg (25.0-35.0); MCHC 33.4 g/dL (31.0-37.0); Mean Platelet Volume 8.9; Monocytes # (A) 0.5 k/uL (0-1.0); Monocytes % (A) 8 %; Neutrophils # (A) 4.5 k/uL (1.3-7.7); Neutrophils % (A) 71 %; Platelet Count 178 k/uL (150-450); RBC 3.83 m/uL (3.80-5.40); RDW 13.8 % (11.5-15.5); WBC 6.3 k/uL (3.8-10.6)
[2024-02-04 16:13] LABS: ALT 11 U/L (4-34); African American GFR (CKD) >90 (>60 ml/min/1.73 sqM); Blood Urea Nitrogen 14 mg/dL (7-17); Non-African American GFR(CKD) >90 (>60 ml/min/1.73 sqM); Uric Acid 5.9 mg/dL (3.7-7.4)
[2024-02-04 16:17] LABS: Creatinine,Urine Random 77.7 mg/dL; Protein/Creatinine Ratio,Urine 0.219
[2024-02-04] MEDS: DINOPROSTONE 10 MG INSERT.ER VAGINAL ONE (17:50)
[2024-02-04] MEDS ORDERED: NALBUPHINE 10 MG/ML (10 ML MDV) IV PRN (18:19)
--- NOTE | 2024-02-04 18:19 | P.HPOB ---
History of Present Illness H&P Date: 02/04/24 Chief Complaint: gestational hypertension Ms. Albrecht is a 38 year old at 37 weeks and 3 days with EDC of 02/22/2024 by LMP consistent with 9 week US who presents to L&D after having an elevated blood pressure in the office. After arriving to L&D, she had 2 more mild range blood pressures. PIH labs were within normal limits and P:C ratio was 0.2. The patient does have a history of gestational hypertension in her 3rd , as well. The was otherwise complicated by anxiety and depression, for which she began zoloft 50mg during the . The fetus is estimated in the 83%ile based on a 32 week ultrasound. The patient did sign paperwork for bilate ral salpingectomy in the event that a section is needed. Obstetric history: 3 FTVD, 3rd complicated by gestational HTN work-up: blood type O positive, antibody screen negative, rubella immune, VDRL non-reactive, HBsAg negative, HIV negative, HCV Ab non-reactive, gonorrhea negative, chlamydia negative, 1 hour GTT wnl, GBS positive. Past Medical History Past Medical History: No Reported History History of Any Multi-Drug Resistant Organisms: None Reported Past Surgical History: Breast Surgery Additional Past Surgical History / Comment(s): 2008, Past Anesthesia/Blood Transfusion Reactions: No Reported Reaction Past Psychological History: No Psychological Hx Reported Smoking Status: Never smoker Past Alcohol Use History: Occasional Past Drug Use History: None Reported - Past Family History Mother Family Medical History: Hypertension Father Family Medical History: Diabetes Mellitus Medications and Allergies Home Medications Medication Instructions Recorded Confirmed Type Vit No.179/Iron/Folic 1 each PO DAILY 02/04/24 02/04/24 History [ Tablet] Sertraline [Zoloft] 25 mg PO DAILY 02/04/24 02/04/24 History Allergies Allergy/AdvReac Type Severity Reaction Status Date / Time No Known Allergies Allergy Verified 02/04/24 15:02 Exam Vital Signs Temp Pulse Resp BP Pulse Ox 02/04/24 17:59 97.6 F 75 16 136/84 97 Intake and Output 02/04/24 02/04/24 02/04/24 06:59 14:59 22:59 Other: Weight 108.862 kg Focused physical exam is performed. This is a healthy-appearing in no apparent distress. Breathing is non-labored. Abdomen is gravid and non-tender. Cervical exam is 2cm, 50% effacement, -3 station. Cervidil is placed. Extremities non-tender and non-edematous. heart tones are reactive and reassuring on NST. - OBG Physical Exam Breast: both: normal (no masses) Abdomen: bowel sounds normal, no diffuse tenderness, no bruit present, no guardi ng noted, no hepatomegaly, no splenomegaly, no mass Vulva: both: normal Vagina: normal moisture, no discharge Cervix: no lesion, no discharge Uterus: normal size, normal contour Adnexa: both: normal Anus/Rectum: normal perianal skin, no rectal mass, no hemorrhoids, heme negative Results Result Diagrams: 02/04/24 15:38 02/04/24 15:38 Abnormal Lab Results - Last 24 Hours (Table) 02/04/24 Range/Units 15:15 Urine Appearance Cloudy H (Clear) Urine Protein Trace H (Negative) Urine Blood Large H (Negative) Ur Leukocyte Esterase Large H (Negative) Ur Squamous Epith Cells 11 H (0-4) /hpf Urine Bacteria Rare H (None) /hpf Urine Mucus Rare H (None) /hpf Assessment and Plan Assessment: 38 year old at 37 weeks and 3 days here for induction of labor for gestational hypertension Plan: Admit, clear liquid diet, cervidil overnight with continuous monitoring and tocometer, PCN G for GBS ppx, plan for AROM in AM. Patient would like to avoid pitocin if possible. Anticipate vaginal delivery.
[2024-02-04] MEDS: PENICILLIN G POTASSIUM 5,000,000 UNIT in DEXTROSE 5% IN WATER 100 ML IVPB STA (19:25)
[2024-02-05] MEDS: PENICILLIN G POTASSIUM 5,000,000 UNIT in DEXTROSE 5% IN WATER 100 ML IVPB ONE
[2024-02-05] MEDS ORDERED: PENICILLIN G POTASSIUM 2,500,000 UNIT in DEXTROSE 5% IN WATER 100 ML IVPB SCH
[2024-02-05] MEDS: PENICILLIN G POTASSIUM 2,500,000 UNIT in DEXTROSE 5% IN WATER 100 ML IVPB SCH (04:41)
[2024-02-05] MEDS ORDERED: TRANEXAMIC 1,000 MG/100ML-NACL 1,000 MG in EMPTY BAG 1 BAG IV PRN (06:57)
[2024-02-05] MEDS ORDERED: TERBUTALINE 1 MG/ML VIAL SQ PRN (06:57)
[2024-02-05] MEDS ORDERED: LIDOCAINE 0.5% (PF) 5 MG/ML (50 ML SDV) SQ PRN (06:57)
[2024-02-05] MEDS ORDERED: OXYTOCIN 10 UNIT/ML 1 ML VIAL IM PRN (06:57)
[2024-02-05] MEDS ORDERED: miSOPROStoL 200 MCG TAB RECTAL PRN (06:57)
[2024-02-05] MEDS ORDERED: miSOPROStoL 200 MCG TAB PO PRN (06:57)
[2024-02-05] MEDS ORDERED: METHYLERGONOVINE 0.2 MG/ML 1 ML AMP IM PRN (06:57)
[2024-02-05] MEDS ORDERED: CARBOPROST TROMETHAMINE 250 MCG/ML 1 ML AMP IM PRN (06:57)
[2024-02-05] MEDS: LACTATED RINGERS 1,000 ML IV SCH (08:36)
[2024-02-05] MEDS: OXYTOCIN 30 UNITS/500 ML NS 30 UNIT in SALINE 1 500ML.BAG IV SCH (13:14)
[2024-02-05] MEDS ORDERED: SODIUM CHLORIDE 0.9% 250 ML BAG ONE (17:48)
[2024-02-05] MEDS ORDERED: fentaNYL (PF) 50 MCG/ML 5 ML AMP ONE (17:48)
[2024-02-05] MEDS ORDERED: ROPIVACAINE 5 MG/ML 30 ML VIAL ONE (17:48)
[2024-02-06] MEDS ORDERED: SIMETHICONE 80 MG CHEWABLE PO PRN (00:23)
[2024-02-06] MEDS ORDERED: diphenhydrAMINE 25 MG CAP PO PRN (00:23)
[2024-02-06] MEDS ORDERED: LANOLIN CREAM 1 GM TUBE TOPICAL PRN (00:23)
[2024-02-06] MEDS ORDERED: ZOLPIDEM 5 MG TAB PO PRN (00:23)
[2024-02-06] MEDS ORDERED: diphenhydrAMINE 50 MG/ML 1 ML VIAL IVP PRN ×2 (00:23)
[2024-02-06] MEDS ORDERED: BENZOCAINE/MENTHOL SPRAY 1 GM/SPRAY AEROSOL TOPICAL PRN (00:23)
[2024-02-06] MEDS ORDERED: HYDROCORTISONE 2.5% RECTAL CREAM 30 GM TUBE RECTAL PRN (00:23)
[2024-02-06] MEDS ORDERED: diphenhydrAMINE 50 MG CAP PO PRN (00:23)
--- NOTE | 2024-02-06 00:23 | P.PROBDLV ---
Vaginal Delivery Note - . Vaginal Delivery Note: DATE OF SERVICE: 02/06/2024 PROCEDURE: Normal Vaginal Delivery ATTENDING: Dr. Latasha Golden MD ESTIMATED BLOOD LOSS: 400 mL FINDINGS: VFI, Apgars . Weight 7 pounds and 4 ounces (3300 grams) PROCEDURE: Ms. Albrecht is a 38 year old at 37 weeks and 3 day presenting to labor and delivery for medical induction of labor for gestational hypertension. The has been otherwise uncomplicated. For further details, please review the admitting H&P. Cervidil was placed on the evening of 02/03 for 12 hours. The next morning, AROM was undertaken at 827 revealing clear amniotic fluid. Pitocin was titrated per protocol. Epidural anesthesia was given per patient request. The patient was completely dilated at 2336. She pushed effetively. During pushing, a face presentation was noted with mentum anterior. The patient was moving the head effectively, so pushing efforts were continued. A viable female was delivered at 0003. The infant was placed on the maternal abdomen and bulb suctioned. The infant was noted to be spontaneously crying. Cord was clamped and cut after a 30-second delay. The was handed off to the pediatric team. Placenta was delivered whole with gentle cord traction at 0007. Oxytocin was started to facilitate uterine tone. Uterine fundus was found to be firm and below the umbilicus upon fundal massage. Thorough examination of the cervix, vagina, periurethral area, and perineum revealed no lacerations. The patient is stable and allowed to begin the bonding process.
[2024-02-06] MEDS: IBUPROFEN 600 MG TAB PO PRN (00:37)
[2024-02-06 02:59] VITALS: RESP 16
[2024-02-06] MEDS: ACETAMINOPHEN TAB 325 MG TAB PO PRN (03:50)
[2024-02-06] MEDS: CALCIUM CARBONATE 500 MG CHEWABLE PO PRN (05:26)
[2024-02-06] MEDS: SENNOSIDES-DOCUSATE SODIUM 1 EACH TAB PO SCH (08:50)
[2024-02-07 05:17] LABS: Basophils # (A) 0.1 k/uL (0-0.2); Basophils % (A) 1 %; Eosinophils # (A) 0.1 k/uL (0-0.7); Eosinophils % (A) 1 %; HGB 10.7 gm/dL (11.4-16.0); Lymphocytes % (A) 18 %; MCH 29.4 pg (25.0-35.0); MCHC 32.4 g/dL (31.0-37.0); Monocytes # (A) 0.6 k/uL (0-1.0); Monocytes % (A) 5 %; Neutrophils % (A) 73 %; Platelet Count 186 k/uL (150-450); RBC 3.63 m/uL (3.80-5.40); RDW 13.7 % (11.5-15.5); WBC 10.9 k/uL (3.8-10.6)
--- NOTE | 2024-02-07 07:03 | P.DS ---
Providers Date of admission: 02/04/24 16:30 Expected date of discharge: 02/07/24 Attending physician: Latasha Golden MD Primary care physician: Stated None - Discharge Diagnosis(es) (1) Normal spontaneous vaginal delivery Current Visit: Yes Status: Acute Hospital Course: The patient is a 38-year-old 4 para 3-0-0-3 admitted at 37-3/7 weeks by good dating parameters. She is admitted secondary to elevated blood pressures making the diagnosis of -induced hypertension. She was sent to labor and delivery and underwent preeclamptic workup which was negative. The decision was nevertheless made to proceed with induction of labor. As her cervix was unfavorable, she had Cervidil cervical ripening. She made some progress overnight and underwent artificial rupture of membranes for clear fluid. She ultimately had Pitocin augmentation started and made progress to approximately 7 to 8 cm at which time she arrested dilation for period of time. She ultimately did progressed to complete or after she pushed to a normal spontaneous vaginal delivery of a viable 7 pound 4 ounce baby girl with Apgars of 6 at 1 minute, 9 at 5 minutes, and 9 at 10 minutes. Her course was unremarkable with vital signs remaining stable with mildly elevated blood pressures but not in a range for treatment. The patient was afebrile throughout. She was deemed stable for discharge on day #1 and was discharged home to follow-up in the office in 6 weeks time routinely. Discharge instructions included calling for any significantly increased bleeding or foul-smelling lochia, significantly increased fever or abdominal pain, perineal complaints, breast complaints, or anything else that concerned her. She was additionally instr ucted to have nothing in the vagina for at least 6 weeks time to include intercourse. She understood her instructions and agrees to follow-up as noted above. Discharge medications included continued vitamins as she has opted to breast-feed as well as [id number] analgesic pain medications. Maternal blood type is O+ and rubella status is immune. Procedures: #1. Cervidil cervical ripening #2. Artificial rupture of membranes #3. Pitocin induction #4. Epidural analgesia #5. Normal spontaneous vaginal delivery Patient Condition at Discharge: Stable Plan - Discharge Summary New Discharge Prescriptions: No Action Sertraline [Zoloft] 25 mg PO DAILY Vit No.179/Iron/Folic [ Tablet] 1 each PO DAILY Discharge Medication List Vit No.179/Iron/Folic [ Tablet] 1 each PO DAILY 02/04/24 [History] Sertraline [Zoloft] 25 mg PO DAILY 02/04/24 [History] Follow up Appointment(s)/Referral(s): Latasha Golden MD [STAFF PHYSICIAN] - 03/18/24 2:00 pm Discharge Disposition: HOME SELF-CARE
[2024-02-07 09:06] VITALS: BP 142/92; PULSE 68; TEMP 98
== END 2024-02-07 12:05 | disposition home or self-care (01) | DRG 807 ==
LOC: FBPOP 14:53 → 4FBP 16:30
PROVIDERS: ADMIT Obstetrics & Gynecology; ATTEND Obstetrics & Gynecology
PROC: 3E0P7VZ Introduction of Hormone into Female Reproductive, Via Natural or Artificial Opening (ICD-10-PCS; principal; 2024-02-06)
PROC: 10907ZC Drainage of Amniotic Fluid, Therapeutic from Products of Conception, Via Natural or Artificial Opening (ICD-10-PCS; principal; 2024-02-06)
PROC: 10E0XZZ Delivery of Products of Conception, External Approach (ICD-10-PCS; principal; 2024-02-06)
DX: O13.4 Gestational [pregnancy-induced] hypertension without significant proteinuria, complicating childbirth (principal); Z37.0 Single live birth; O32.3XX0 Maternal care for face, brow and chin presentation, not applicable or unspecified; O99.344 Other mental disorders complicating childbirth; F41.9 Anxiety disorder, unspecified; F32.A Depression, unspecified; Z3A.37 37 weeks gestation of pregnancy; Z79.899 Other long term (current) drug therapy
CPT/HCPCS: 36415; 59025; 81001; 82565; 82570; 84156; 84450; 84460; 84520; 84550; 85025; 86850; 86900; 86901